=== PATIENT | female | born 1960 | race Caucasian/White ===

== ENCOUNTER → 2020-03-06 14:50 | Outpatient (CLI) | payer BC, OTHER, SELFPAY ==
--- NOTE | ~2020-03-06 | MR_ITS ---
EXAMINATION: MR knee LT wo con DATE: 03/06/2020 15:55 INDICATION: Left knee pain TECHNIQUE: Magnetic resonance imaging (MRI) of the left knee was performed without intravenous contra st. Sequences included coronal PD-weighted FSE, coronal PD-weighted FS FSE, sagittal T2-weighted FSE , sagittal PD-weighted FS FSE and axial PD weighted fat saturated FSE. COMPARISON: None. FINDINGS: Medial compartment: Medial meniscus is normal. Articular cartilage is normal. Lateral compartment: Discoid lateral meniscus with complex tear along the medial side of the posterior horn. Articular car tilage is normal. Patellofemoral compartment: Chondral ulceration with deep fissuring and underlying subarticular edema at the apical ridge of the patella. Additional partial thickness fissuring without degenerative subchondral changes at the media l facet. Additional deep fissuring with mild underlying cortical irregularity at the inferolateral as pect of the medial trochlea. Ligaments and tendons: Anterior and posterior cruciate ligaments are normal. The medial collateral ligament and fibular nick ateral ligament complex are normal. The extensor mechanism is normal. The visualized medial and later al hamstring tendons as well as the iliotibial band are normal. Fluid: Small left knee joint effusion. No loose osteochondral bodies identified. Osseous/other: Bone alignment is normal. Small bone island at the anterior aspect of the lateral trochlea. Normal ma rrow signal aside from the previous noted subarticular edema at the patella. No fracture or pathologi c marrow replacing process. Prominent edema at the superficial suprapatellar fat pad which can be see n with fat pad impingement syndrome. IMPRESSION: 1. Complex tear at the posterior horn of the discoid lateral meniscus. 2. Mild patellofemoral osteoarthritis with regions of high-grade chondromalacia at the patellar apica l ridge and inferolateral aspect of the medial trochlea. 3. Prominent edema at the superficial suprapatellar fat pad consistent with fat pad impingement syndr ome. 4. Likely reactive small left knee joint effusion. Reviewed, dictated and finalized at location A. [facility] IMPRESSION: 1. Complex tear at the posterior horn of the discoid lateral meniscus. 2. Mild patellofemoral osteoarthritis with regions of high-grade chondromalacia at the patellar apical ridge and inferolateral aspect of the medial trochlea. 3. Prominent edema at the superficial suprapatellar fat pad consistent with fat pad impingement syndrome. 4. Likely reactive small left knee joint effusion.
== END ==
PROVIDERS: Visit Provider Orthopaedic Surgery
DX: M17.12 Unilateral primary osteoarthritis, left knee (principal); S83.282A Other tear of lateral meniscus, current injury, left knee, initial encounter; X58.XXXA Exposure to other specified factors, initial encounter
CPT/HCPCS: 73721

== ENCOUNTER 2020-03-23 01:54 | Outpatient (CLI) | payer BC, OTHER, SELFPAY ==
[2020-03-23 18:59] LABS: SARS-CoV-2 RNA PCR Negative
== END 2020-03-23 01:55 | disposition home or self-care (01) ==
LOC: ANHCOVIDDT 01:54
PROVIDERS: PCP Family Medicine; Visit Provider Orthopaedic Surgery
DX: Z01.818 Encounter for other preprocedural examination (principal); Z20.828 Contact with and (suspected) exposure to other viral communicable diseases
CPT/HCPCS: 87635; C9803; U0003

== ENCOUNTER 2020-03-23 07:15 | Outpatient (CLI) | payer BC, OTHER, SELFPAY ==
--- NOTE | 2020-03-23 07:38 | ECG_ITS ---
Measurements Intervals [place] Rate: 75 P: 56 TX: 145 QRS: 49 QRSD: 86 T: 37 QT: 389 QTc: 436 Interpretive Statements SINUS RHYTHM NORMAL ECG Electronically Signed On 03-23-2020 10:16:06 DRYING FRAME OPERATOR by Michael Acosta D.O.
[2020-03-23 08:05] LABS: Anion Gap 7 mmol/L (8-16); Blood Urea Nitrogen 24 mg/dL (7-17); Calcium 9.2 mg/dL (8.4-10.2); Carbon Dioxide 26 mmol/L (22-30); Chloride 105 mmol/L (98-107); Estimated Glomerular Filt Rate > 60; Glucose 112 mg/dL (65-105); Sodium 138 mmol/L (137-145)
== END 2020-03-23 07:16 | disposition home or self-care (01) ==
PROVIDERS: PCP Family Medicine; Visit Provider Anesthesiology
DX: Z01.810 Encounter for preprocedural cardiovascular examination (principal); Z51.81 Encounter for therapeutic drug level monitoring; Z79.899 Other long term (current) drug therapy; I10 Essential (primary) hypertension
CPT/HCPCS: 36415; 80048; 93005

== ENCOUNTER 2020-03-27 00:53 | Day surgery (SDC) | payer BC, OTHER, SELFPAY ==
[2020-03-21 09:38] VITALS: BMI 30.7
--- NOTE | 2020-03-25 12:39 | PM.IMHP ---
H&P: HPI History of Present Illness Date/Time: 03/25/20 12:39 chief complaint is Left lateral knee pain Chief Complaint: chief complaint left lateral knee pain. Narrative: Brigette Sahu is a 59 year old female Who presents with a chronic ongoing history of left knee pain. She has pain and swelling with mechanical symptoms as well. Her pain is worse with activity and somewhat relieved by rest. Most her pain is localized to the lateral compartment of the knee she can not twist turns squat kneel stand for long periods all these activities aggravate her symptoms. Despite conservative measures including cortisone therapy and anti-inflammatories the patient's symptoms continue in the left knee. An MRI scan was performed this demonstrates a discoid lateral meniscus with a complex tear along the medial side of the posterior horn. Articular cartilage is normal. Medial meniscus appears to be normal stabilizing ligaments of the knee are also normal no other significant pathology or osteoarthritis is noted. At this point the patient has discussed further treatment options in detail with Dr. Jarrell she has failed conservative measures she not to proceed with knee arthroscopy. Review of Systems Review of Systems: All systems reviewed & are unremarkable except as noted in HPI and below PMFSH Social History Social History Smoking status: Never smoker Second hand tobacco smoke exposure: No Alcohol intake: current Drinks per week: 1 Substance use: never Spiritual care concerns: No Meds Home Medications and Allergies Home Medications Medication Instructions Recorded Confirmed Type cholecalciferol (vitamin D3) 250 mcg PO DAILY 03/21/20 03/21/20 History conjugated estrogens [Premarin] 0.625 mg PO DAILY 03/21/20 03/21/20 History escitalopram oxalate [Lexapro] 20 mg PO DAILY 03/21/20 03/21/20 History lisinopril-hydrochlorothiazide 1 tablet DAILY 03/21/20 03/21/20 History omeprazole 40 mg DAILY 03/21/20 03/21/20 History vitamin E 400 unit PO DAILY 03/21/20 03/21/20 History Allergies Allergy/AdvReac Type Severity Reaction Status Date / Time STEROID AdvReac Flushing Uncoded 03/21/20 09:31 Z-PACK AdvReac Flushing Uncoded 03/21/20 09:31 Exam Narrative: Exam Narrative: The patient is well-developed well-nourished female no acute distress. She is alert and oriented x3. Normal mood and affect. Hearing and vision intact. HEENT exam within normal limits. Heart regular rate rhythm. Lungs clear auscultation. Abdomen benign. Extremities showed the patient's left knee to be painful with manipulation range of motion. She has tenderness on the lateral joint line with a positive Carlee exam which reproduced her lateral compartment symptoms. She has full range of motion the joint is otherwise stable with a negative Roderick exam. She does have a mild to moderate knee joint effusion pain with extremes of motion. Hips move well negative Stinchfield negative TRACI. Neurovascular the patient is intact. Skin is intact without rashes lesions. Central nervous system exam within normal limits. Assessment and Plan Additional Plan By MRI and exam the patient is noted to have a discoid lateral meniscus with a lateral meniscal tear as described above. The patient has discussed risks benefits limitations and alternatives of surgery in great detail with Dr. Jarrell she is now to proceed with a left knee arthroscopy partial lateral meniscectomy proceed as indicated. The patient is scheduled undergo surgery 03/27/[address] [facility] Dr. Jarrell. The patient voiced understanding and agrees with the above plan.
--- NOTE | 2020-03-26 14:43 | WPDANESEPPF ---
Anes - Initial Pre Proc Eval Procedure: Operation Date: 03/27/20 07:30 Proposed Procedures p Left Knee Arthroscopy, Partial Lateral Meniscectomy, Proceed As Indicated - Melecio Jarrell MD Date/Time: 03/26/20 14:43 Surgeon: Melecio Jarrell MD Pre Op Diagnosis: Left Knee Lateral Meniscus Tear Patient Data Age: 59 Gender: F Height: 1.57 m Weight: 76.36 kg Allergies Allergy/AdvReac Type Severity Reaction Status Date / Time azithromycin AdvReac Mild Flushing Verified 03/27/20 06:06 STEROID AdvReac Mild Flushing Uncoded 03/27/20 06:06 Home Medications Medication Instructions Recorded Confirmed Type cholecalciferol (vitamin D3) 250 mcg PO DAILY 03/21/20 03/27/20 History conjugated estrogens [Premarin] 0.625 mg PO DAILY 03/21/20 03/27/20 History escitalopram oxalate [Lexapro] 20 mg PO DAILY 03/21/20 03/27/20 History lisinopril-hydrochlorothiazide 1 tablet DAILY 03/21/20 03/27/20 History omeprazole 40 mg DAILY 03/21/20 03/27/20 History vitamin E 400 unit PO DAILY 03/21/20 03/27/20 History Patient hx anesthesia problems: none Family hx anesthesia problems: none PMFSH Past Medical History Medical History (Updated 03/26/20 @ 14:44 by Aidan Evans DO) Anxiety GERD (gastroesophageal reflux disease) Hypertension Surgical History Surgical History (Updated 03/26/20 @ 14:44 by Aidan Evans DO) History of cholecystectomy History of hysterectomy Social History Social History Smoking status: Never smoker Second hand tobacco smoke exposure: No Alcohol intake: current Drinks per week: 1 Substance use: never Living arrangements: with family Spiritual care concerns: No Anes - Eval Final PreProcedure Day of Procedure 03/26/20 14:43 Patient weight: obese Heart: regular rate and rhythm Lungs: clear to auscultation and normal air movement Airway: Mallampati scale class II Neurological: alert and oriented Last oral intake: >/= 8 hours ASA classification: III Emergent: no Anesthetic plan: proceed Anesthesia type and monitoring: general LMA and standard monitoring Informed Consent: The patient's anesthetic plan and its attendant risks and benefits were discussed with the patient/family/POA. Questions were solicited and answers provided to the satisfaction of the patient/family/POA.
[2020-03-27] VITALS (8 sets, daily range): BP systolic 117–135; BP diastolic 64–85; PULSE 77–88; RESP 16–20; TEMP 36.1–36.6; O2SAT 98–100
[2020-03-27] MEDS: LACTATED RINGERS 1,000 ML 30 ML IV CONT (06:39)
[2020-03-27] MEDS: ACETAMINOPHEN 500 MG TABLET 1000 MG PO (06:40)
[2020-03-27] MEDS: KETOROLAC 15 MG/ML VIAL (*BKC) IV PUSH (06:41)
--- NOTE | 2020-03-27 07:30 | WPDHPUPDATE1 ---
History and Physical Update Update Date/Time: 03/27/20 07:30 History and Physical has been reviewed, including an updated exam of the patient. There are NO changes in the patient's condition. Risks, benefits, and alternatives have been discussed and questions answered. Patient agrees to proceed with procedure.
--- NOTE | 2020-03-27 07:42 | SUR.PREOP ---
Up to bathroom.
[2020-03-27] MEDS: ceFAZolin 2 GM/D5W 50 ML 2 GM/50 ML BAG IVPB (07:44)
[2020-03-27] MEDS: LIDO 1%/EPINEPHRINE 1:100,000 20 ML VIAL INFILTRATE (08:05)
[2020-03-27] MEDS: KETOROLAC 30 MG/ML VIAL (*BKC) IV PUSH (08:14)
--- NOTE | 2020-03-27 08:23 | PM.PROC ---
Procedure Note - Detailed Date of procedure: 03/27/20 Pre-op diagnosis: Left Knee Lateral Meniscus Tear Post-op diagnosis: same Procedure performed: [left] knee arthroscopy with partial meniscetomy Description of procedure: Patient brought to the operating room and anesthetic was administered. The knee was steriley prepped and drapped in the usual manner. Standard portals were used. Superior medial portal was used for the outflow cannula, inferior lateral portal was used for the scope, inferior medial portal was used for the instruments. Arthroscopy was performed, the patellar femoral joint degenerative changes. The lateral compartment showed a complex tear. The lateral compartment showed fraying. The ACL was intact. Using baskets and nakia the meniscal tear was trimmed back to a stable base so the nothing further could be pulled into the joint. Any loose or delaminated fragments were gently trimmed to a stable base. At this point the instruments were withdrawn, sutures placed and patient left the operating room in satisfactory condition. Anesthesia: GETA Surgeon: Melecio Jarrell MD Estimated blood loss (mL): 20 Drains: No Packing: No Pathology: none sent Complications: No immediate complications Condition: stable Disposition: PACU
[2020-03-27] MEDS: ONDANSETRON INJ 4 MG/2 ML VIAL IV PUSH (08:45)
[2020-03-27] MEDS: fentaNYL CITRATE INJ (*CRX) 100 MCG/2 ML VIAL 25 MCG IV PUSH ×2 (08:51→09:02)
[2020-03-27] MEDS: oxyCODONE HCL (*CRX) 5 MG TAB IR PO (09:38)
== END 2020-03-27 10:13 | disposition home or self-care (01) ==
PROVIDERS: PCP Family Medicine; Visit Provider Orthopaedic Surgery
PROC: (CPT 29870; principal; 2020-03-27 07:30)
DX: M23.362 Other meniscus derangements, other lateral meniscus, left knee (principal); F41.9 Anxiety disorder, unspecified; K21.9 Gastro-esophageal reflux disease without esophagitis; I10 Essential (primary) hypertension; E66.8 Other obesity; Z68.31 Body mass index [BMI] 31.0-31.9, adult
CPT/HCPCS: 29881; A9270; J0690; J1885; J2250; J2405; J2704; J3010; J7120

== ENCOUNTER 2021-04-08 15:01 | Outpatient (RCR) | payer BC, OTHER, SELFPAY ==
[2021-04-08 14:58] VITALS: BMI 31.1
[2021-04-08 15:01] VITALS: BMI 31.1
== END 2021-06-23 10:41 | disposition home or self-care (01) ==
LOC: ANHDMC 15:01
PROVIDERS: PCP Family Medicine; Visit Provider Family Medicine
DX: E66.9 Obesity, unspecified (principal); Z71.3 Dietary counseling and surveillance
CPT/HCPCS: 97802